=== PATIENT | female | born 1970 | race Caucasian/White ===

== ENCOUNTER 2016-06-17 19:27 | Emergency (ER) | payer OTHER ==
[~2016-06-17] VITALS: Ht 154.9 cm; Wt 75.4 kg
[2016-06-17 19:28] VITALS: BP 144/93
== END 2016-06-17 20:14 | disposition home or self-care (01) ==
LOC: ED 19:31
DX: Z02.89 Encounter for other administrative examinations (principal)
CPT/HCPCS: 99283